=== PATIENT | female | born 1980 ===

== ENCOUNTER 2017-11-30 09:14 | Emergency (ER) | payer OTHER ==
[2017-11-30 09:27] VITALS: BMI 23.3
[2017-11-30 09:28] VITALS: TEMP 98.2
--- NOTE | 2017-11-30 10:03 | C.PDOC ---
History Of Present Illness 37yo female, , presents to ED today requesting a "second opinion". Patient states she was seen at [facility] earlier this morning due to vaginal bleeding. Pt used 3 pads yesterday. Patient was told there is no cardiac activity and she was instructed to follow up with the OBGYN later today. Pt states she feels the baby move and is requesting a second opinion. Denies any fever, abdominal pain, nausea and vomiting. 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 History/Exam Limitations: no limitations Current Symptoms Are (Timing): Still Present Abnormal Vaginal Bleeding: Yes : 4 Para: 3 Past Medical History Reviewed: Historical Data, Nursing Documentation, Vital Signs Vital Signs: Last Vital Signs Temp 98.2 F 11/30/17 09:27 Pulse 93 H 11/30/17 10:22 Resp 18 11/30/17 10:22 BP 119/85 11/30/17 10:22 Pulse Ox 100 11/30/17 10:30 - Medical History PMH: No Chronic Diseases Surgical History: No Surg Hx Family History: States: No Known Family Hx - Social History Hx Alcohol Use: No Hx Substance Use: No - Immunization History Hx Tetanus Toxoid Vaccination: No Hx Influenza Vaccination: No Hx Pneumococcal Vaccination: No Review Of Systems Except As Marked, All Systems Reviewed And Found Negative. Constitutional: Negative for: Fever, Chills Gastrointestinal: Negative for: Vomiting, Abdominal Pain, Diarrhea Genitourinary: Positive for: Vaginal Bleeding (scant) Physical Exam - Physical Exam Appears: Well, Non-toxic, No Acute Distress Skin: Normal Color, Warm, Dry Head: Atraumatic, Normacephalic Eye(s): bilateral: Normal Inspection, EOMI Neck: Normal ROM, Supple Chest: Symmetrical Cardiovascular: Rhythm Regular Respiratory: Normal Breath Sounds Gastrointestinal/Abdominal: Normal Exam, Soft, No Tenderness Extremity: Normal ROM Neurological/Psych: Oriented x3 ED Course And Treatment O2 Sat by Pulse Oximetry: 100 (RA) Pulse Ox Interpretation: Normal Progress Note: Lab report from [facility] reveiwed: Normal CBC and chem, B-HCG level of 8600, RH O+. Ultrasound report reviewed as well, indicates single IUP 5w6d of age, no cardiac activity detected showing demise. Pt was instructed to follow up with her OBGYN for a second opinion . Pt had full work up a few hours prior therefore repeat work up not indicated at this time. Case discussed with Dr Caldera, agreed upon plan and discharge. Disposition - Disposition Disposition: HOME/ ROUTINE Disposition Time: 10:02 Condition: STABLE Additional Instructions: follow up with your OB in 1-2 days or return to ER if symptoms persist or worsen. Instructions: Bleeding With (DC) Forms: [employer] (Tajik) Print Language: MALAY - Clinical Impression Clinical Impression: First trimester bleeding - PA / RESEARCH/PROGRAM DIRECTOR / Resident Statement MD/DO has reviewed & agrees with the documentation as recorded. - Scribe Statement The provider has reviewed the documentation as recorded by the Scribe (Liseth Shultz) Provider Attestation: All medical record entries made by the Scribe were at my direction and personally dictated by me. I have reviewed the chart and agree that the record accurately reflects my personal performance of the history, physical exam, medical decision making, and the department course for this patient. I have also personally directed, reviewed, and agree with the discharge instructions and disposition.
[2017-11-30 10:23] VITALS: BP 119/85; PULSE 93; RESP 18
[2017-11-30 10:25] VITALS: O2SAT 100
== END 2017-11-30 10:23 | disposition home or self-care (01) ==
LOC: C.ER 09:14
DX: O20.9 Hemorrhage in early pregnancy, unspecified (principal); Z3A.01 Less than 8 weeks gestation of pregnancy